=== PATIENT | female | born 1975 | race Caucasian/White ===

== ENCOUNTER 2016-12-30 08:52 | Day surgery (SDC) | payer BC ==
[~2016-12-30 08:52] MED LIST: FENTANYL 250 MCG/5 ML AMP IV PRN; IV START KIT ONE; LACTATED RINGERS 1,000 ML IV SCH; LACTATED RINGERS 1,000 ML ONE; LIDOCAINE Viscous 2% 15 ML UDCUP PO PRN; MIDAZOLAM HCL 5 MG/5 ML VIAL IV PRN
[2016-12-30] MEDS ORDERED: MIDAZOLAM HCL 5 MG/5 ML VIAL ONE (09:57)
[2016-12-30] MEDS ORDERED: FENTANYL 250 MCG/5 ML AMP ONE (09:57)
[2016-12-30] MEDS ORDERED: LIDOCAINE Viscous 2% 15 ML UDCUP ONE (09:57)
[2016-12-30] MEDS ORDERED: MIDAZOLAM HCL 1 MG/ML 2ML VIAL ONE (10:37)
[2016-12-30] MEDS ORDERED: LACTATED RINGERS 1,000 ML ONE (10:38)
[2016-12-30 15:56] LABS: HELICOBACTER PYLORII DETECTION NEGATIVE (NEGATIVE)
--- NOTE | 2017-01-01 09:57 | SURGPATH ---
[facility] [address] [place] [address] Patient Name: KINZA ANGUIANO MR#: [id number] : 1975 Gender: F Specimen #: [id number] Collected: 12/30/2016 Received: 12/31/2016 Reported: 01/01/2017 Submitting Phys: DAVID PATEL Copy To Phys: [facility] EMILY PITT Clinical History / Pre-Operative Diagnosis: DYSPHAGIA WITH HEARTBURN AND BLOATING; ABDOMINAL PAIN; DIARRHEA; RULE OUT GIARDIA, CELIAC SPRUE, GASTRITIS AND COLITIS Specimen Source / Surgical Procedure Performed: #1-DUODENAL BIOPSY; #2-ANTRAL BIOPSY; #3-CECAL BIOPSY; #4-SIGMOID BIOPSY AT 30 CM Interpretation: 1. DUODENUM, BIOPSY: - NO PATHOLOGIC ABNORMALITIES 2. GASTRIC ANTRUM, BIOPSY: - NO PATHOLOGIC ABNORMALITIES 3. CECAL BIOPSY: - NO PATHOLOGIC ABNORMALITIES 4. SIGMOID COLON AT 30 CM, BIOPSY: - NO PATHOLOGIC ABNORMALITIES Electronically Signed Out Pan Gilmore M.D. Gross Description: #1 The specimen is received in a formalin filled container labeled with the patient's name and "duodenal biopsy". Three johnson biopsies are 0.2, 0.3 and 0.3 cm. Totally embedded in cassette #1. #2 The specimen is received in a formalin filled container labeled with the patient's name and "antral biopsy". Two johnson biopsies are 0.2 and 0.5 cm. Totally embedded in cassette #2. #3 The specimen is received in a formalin filled container labeled with the patient's name and "cecal biopsy". Two johnson biopsies are 0.4 and 0.5 cm. Totally embedded in cassette #3. #4 The specimen is received in a formalin filled container labeled with the patient's name and "sigmoid biopsy at 30 cm". Two maguire-johnson biopsies are 0.3 and 0.5 cm. Totally embedded in cassette #4. Britton Ingram Microscopic Description: 1. The sections show fragments of small bowel mucosa exhibiting a normal architectural pattern without evidence of villous blunting. There are no inflammatory or neoplastic features and there are no microorganisms identified. 2. The sections show fragments of gastric mucosa exhibiting a normal architectural pattern. There are no inflammatory or neoplastic features and there are no Helicobacter-like organisms identified. 3. The sections show fragments of colonic mucosa exhibiting a normal architectural pattern. There are no inflammatory or neoplastic features and the basement membrane is of normal caliber. 4. The sections show fragments of colonic mucosa exhibiting a normal architectural pattern. There are no inflammatory or neoplastic features and the basement membrane is of normal caliber. 1: 87215 2: 28842 3: 13187 4: 68423 R47.02 R19.7
== END 2016-12-30 11:50 | disposition home or self-care (01) ==
LOC: SDC 08:52
PROVIDERS: ATTEND Internal Medicine Gastroenterology
PROC: 0DB98ZX Excision of Duodenum, Via Natural or Artificial Opening Endoscopic, Diagnostic (ICD-10-PCS; principal; 2016-12-30)
PROC: 0DB68ZX Excision of Stomach, Via Natural or Artificial Opening Endoscopic, Diagnostic (ICD-10-PCS; 2016-12-30)
PROC: 0DBH8ZX Excision of Cecum, Via Natural or Artificial Opening Endoscopic, Diagnostic (ICD-10-PCS; 2016-12-30)
PROC: 0DBN8ZX Excision of Sigmoid Colon, Via Natural or Artificial Opening Endoscopic, Diagnostic (ICD-10-PCS; 2016-12-30)
DX: K29.70 Gastritis, unspecified, without bleeding (principal); K29.80 Duodenitis without bleeding; K59.8 Other specified functional intestinal disorders; K64.1 Second degree hemorrhoids; D50.9 Iron deficiency anemia, unspecified; N31.9 Neuromuscular dysfunction of bladder, unspecified; Z88.2 Allergy status to sulfonamides
CPT/HCPCS: 87081; 43239; 45380; J3010; J2250 ×2; A9270; J7120 ×2